=== PATIENT | female | born 1960 | race Caucasian/White ===

== ENCOUNTER 2022-09-12 06:00 | Outpatient (CLI) | payer MEDICARE, MEDICAID ==
[~2022-09-12] VITALS: Ht 152.4 cm; Wt 77.3 kg
[~2022-09-12 06:00] MED LIST: ACHD5005 PO; BUSP30TA2 PO; DOCU100C37 PO; FLUO40CA PO; LIRA0.6P SQ; LSNP10T; METF-397 PO; PARO10TA21; SITA1TAB6; [UNRECOGNIZED DRUG - CODE] PO
[2022-09-12] MEDS ORDERED: LISI5TAB20 PO (09:47)
[2022-09-12] MEDS ORDERED: SEMA0.25 SQ (09:47)
[2022-09-12] MEDS ORDERED: ATOR40TA70 PO (09:47)
[2022-09-12] MEDS ORDERED: FENO48TA11 PO (09:47)
[2022-09-12] MEDS ORDERED: EMPA10TA PO (09:47)
[2022-09-12] MEDS ORDERED: FLUO20CA48 PO (09:47)
== END 2022-09-12 09:58 | disposition home or self-care (01) ==
LOC: PREOP 06:00
PROVIDERS: ATTEND Surgery
DX: Z01.818 Encounter for other preprocedural examination (principal)

== ENCOUNTER 2022-09-20 07:05 | Day surgery (SDC) | payer MEDICARE, MEDICAID ==
[~2022-09-20] VITALS: Ht 152.4 cm; Wt 77.3 kg
[~2022-09-20 07:05] MED LIST changes: +ATOR40TA70 PO; +EMPA10TA PO; +FENO48TA11 PO; +FLUO20CA48 PO; +LISI5TAB20 PO; +SEMA0.25 SQ
[2022-09-20] MEDS ORDERED: LACTATED RINGERS 1,000 ML IV STA (07:12)
[2022-09-20 07:20] VITALS: BP 129/82
[2022-09-20] MEDS ORDERED: PROPOFOL INJECTION 50 ML IV ONE (08:40)
--- NOTE | 2022-09-20 08:44 | Progress Note-Pre Operative ---
Pre-Operative Progress Note Date H&P Reviewed: Sep 20, 2022 Time H&P Reviewed: 08:27 History & Physical: H&P Reviewed, Patient Examed, No changes noted Pre-Operative Diagnosis: screening colonoscopy DOREEN HERNANDEZ DO Sep 20, 2022 08:44
--- NOTE | 2022-09-20 09:10 | Anesthesia-General Post-Op ---
MAC Patient Condition Mental Status/LOC: Same as Preop Cardiovascular: Satisfactory Nausea/Vomiting: Absent Respiratory: Satisfactory Pain: Controlled Complications: Absent Post Op Complications Complications None Follow Up Care/Instructions Patient Instructions None needed. Anesthesiology Discharge Order Discharge Order Patient is doing well, no complaints, stable vital signs, no apparent adverse anesthesia problems. No complications reported per nursing. PENNIE MAN CRNA Sep 20, 2022 09:10
[2022-09-20 09:15] VITALS: BP 105/55
[2022-09-20 09:20] VITALS: BP 102/56
--- NOTE | 2022-09-20 09:20 | Discharge Inst-Simple/Standard ---
Discharge Inst-Standard Patient Instructions/Follow Up Plan of Care/Instructions/FU: 10 years for repeat colonoscopy, any issues before that be seen at that time. IF family history of colon cancer or personal history of polyps it would be 5 years. Activity as Tolerated: Yes Discharge Diet: Regular Diet (high fiber) DOREEN HERNANDEZ DO Sep 20, 2022 09:20
--- NOTE | 2022-09-20 09:22 | Progress Note-Post Operative ---
Post-Operative Progess Note Surgeon (s)/Mud Car Worker (s) Surgeon DOREEN HERNANDEZ DO Mud Car Worker: na Pre-Operative Diagnosis screening colonoscopy Post-Operative Diagnosis diverticulosis Procedure & Operative Findings Date of Procedure 09/20/22 Procedure Performed/Findings colonoscopy Anesthesia Type per shop fitter Estimated Blood Loss Estimated blood loss (mL): none Specimens/Packing Specimens Removed na DOREEN HERNANDEZ DO Sep 20, 2022 09:22
[2022-09-20 09:25] VITALS: BP 102/57
[2022-09-20 09:40] VITALS: BP 102/57
--- NOTE | 2022-09-20 12:40 | OPERATIVE REPORT ---
DATE OF SERVICE: 09/20/2022 PREOPERATIVE DIAGNOSIS: Screening colonoscopy. POSTOPERATIVE DIAGNOSIS: Diverticulosis minimal. PROCEDURE: Colonoscopy. SURGEON: Doreen Hurt DO ANESTHESIA: Per BUILDING AND GROUNDS SUPERVISOR. ESTIMATED BLOOD LOSS: None. COMPLICATIONS: None. INDICATIONS: The patient is a 62-year-old female, needing screening colonoscopy. She understands risks and benefits of procedure and wished to proceed. Consent was signed on chart. DESCRIPTION OF PROCEDURE: The patient was taken to endoscopy suite, placed in left lateral recumbent position. Timeout was performed. Digital rectal exam performed. No palpable polyps, masses or ulcerations. Scope was inserted in the rectum all the way to the cecum with minimal difficulty. Prep was adequate. Scope was slowly retracted back. No polyps, masses or ulcerations in the cecum, ascending, transverse, descending and sigmoid colon. Minimal amount diverticulosis present. Once in the rectum, scope was retroflexed noting no other pathology. Scope was returned to its normal position, slowly withdrawn until completely removed. The patient tolerated the procedure well without any complications, taken to recovery room in stable condition. RECOMMENDATIONS: The patient will need repeat colonoscopy in 10 years unless family history of colon cancer, personal history of polyps, which will then be 5 years. Any issues before that, will be seen at that time. Due to diverticulosis, recommend high fiber diet. Job ID: [id number] DocumentID: [id number] Dictated Date: 09/20/2022 09:44:57 Import/Export Agent Date: 09/20/2022 12:39:00 Dictated By: DOREEN HURT DO
== END 2022-09-20 09:55 | disposition home or self-care (01) ==
LOC: ENDO 07:05
PROVIDERS: ATTEND Surgery
DX: Z12.11 Encounter for screening for malignant neoplasm of colon (principal); K57.30 Diverticulosis of large intestine without perforation or abscess without bleeding; K52.9 Noninfective gastroenteritis and colitis, unspecified; K52.1 Toxic gastroenteritis and colitis; T38.3X5A Adverse effect of insulin and oral hypoglycemic [antidiabetic] drugs, initial encounter; E11.9 Type 2 diabetes mellitus without complications; Z79.84 Long term (current) use of oral hypoglycemic drugs; Z79.85 Long-term (current) use of injectable non-insulin antidiabetic drugs